=== PATIENT | female | born 1960 | race Caucasian/White ===

== ENCOUNTER → 2017-05-18 | Outpatient (CLI) | payer BC ==
[2017-05-18 13:25] LABS: Blood Urea Nitrogen 9 mg/dL (7-17); Non-African American GFR(MDRD) >60 (>60 ml/min/1.73 sqM)
--- NOTE | 2017-05-18 14:48 | CT ---
EXAMINATION TYPE: CT abdomen pelvis w con DATE OF EXAM: 05/18/2017 COMPARISON: NONE HISTORY: RLQ pain with nausea and diarrhea CT DLP: 1645 mGycm Automated exposure control for dose reduction was used. TECHNIQUE: Helical acquisition of images from the lung bases through the pelvis have been completed. CONTRAST: Performed with Oral Contrast and with IV Contrast, patient injected with 100 mL of Omnipaque 300. FINDINGS: LUNG BASES: No significant abnormality is appreciated. AORTA: No significant abnormality is appreciated. LIVER/GB: Liver shows low attenuation compatible with hepatic steatosis, the liver is enlarged and a gallbladder is absent PANCREAS: No significant abnormality is seen. SPLEEN: No significant abnormality is seen. ADRENALS: No significant abnormality is seen. KIDNEYS: No significant abnormality is seen. REPRODUCTIVE ORGANS: There is a large right cystic adnexal mass measuring approximately 7.4 cm in gre atest dimension. Uterus is not seen. Left ovary is normal. BOWEL: The appendix is normal. Thickening of the wall of the sigmoid colon may be due to muscular hy pertrophy or lack of distention, diverticular changes are scattered. No evident bowel obstruction. FREE AIR: No Free Air visible. ASCITES: None visible. PELVIC ADENOPATHY: None visualized. RETROPERITONEAL ADENOPATHY: No Retroperitoneal Adenopathy visible. URINARY BLADDER: No significant abnormality is seen. OSSEOUS STRUCTURES: No significant abnormality is seen. IMPRESSION: CYSTIC RIGHT ADNEXAL MASS, CONSIDER CYSTADENOMA, CYSTADENOCARCINOMA, MANAGER MANUFACTURING CONSULT. DIVERTICULOSIS. POS T OP CHANGES. HEPATIC STEATOSIS.
== END ==
LOC: RADCTMAIN 12:52
PROVIDERS: ATTEND Family Medicine
DX: K57.90 Diverticulosis of intestine, part unspecified, without perforation or abscess without bleeding (principal); K76.0 Fatty (change of) liver, not elsewhere classified; N85.8 Other specified noninflammatory disorders of uterus
CPT/HCPCS: 82565; 84520; 74177; 36415; Q9967

== ENCOUNTER → 2017-07-27 | Outpatient (CLI) | payer BC ==
--- NOTE | 2017-07-27 15:39 | US ---
EXAMINATION TYPE: US transvaginal DATE OF EXAM: 07/27/2017 COMPARISON: Correlation CT 05/18/2017 CLINICAL HISTORY: 56-year-old female N83.20 Previous right ovarian cysts. Follow-up right ovarian cys t seen on CT, Partial hysterectomy in 1982, right side discomfort TECHNIQUE: Transvaginal (TV) Date of LMP: Partial hysterectomy Findings: Uterus: Surgically absent Right Ovary: 7.9 x 5.5 x 5.7 cm, enlarged secondary to a simple cyst measuring 7.3 x 4.7 x 5.1 cm. Left ovary cannot be visualized. Suboptimal color and Doppler imaging of the right ovary due to large cystic lesion obscuring the norm al ovarian parenchyma. No evident adnexal abnormality or cul-de-sac free fluid. IMPRESSION: 1. Status post hysterectomy. The left ovary could not be visualized. 2. Large 7.3 x 5.1 x 4.7 cm simple cyst filling the right ovary. This measured up to 7.9 cm on the sa gittal images on CT from 05/18/2017. A 6 - 8 week follow-up ultrasound can be performed. If the findi ng continues to persist, a cystic epithelial ovarian neoplasm (likely benign) is not excluded and teri gical evaluation can be considered.
== END | disposition home or self-care (01) ==
LOC: RADUSWWP 14:19
PROVIDERS: ATTEND Obstetrics & Gynecology
DX: N83.201 Unspecified ovarian cyst, right side (principal); Z90.710 Acquired absence of both cervix and uterus
CPT/HCPCS: 76830

== ENCOUNTER → 2017-08-26 | Outpatient (CLI) | payer BC ==
[2017-08-26 12:20] LABS: Basophils # (A) 0.1 k/uL (0-0.2); Basophils % (A) 1 %; Eosinophils # (A) 0.2 k/uL (0-0.7); Eosinophils % (A) 2 %; HCT 43.5 % (34.0-46.0); HGB 13.4 gm/dL (11.4-16.0); Lymphocytes # (A) 2.6 k/uL (1.0-4.8); Lymphocytes % (A) 30 %; MCH 29.1 pg (25.0-35.0); MCHC 30.7 g/dL (31.0-37.0); MCV 94.9 fL (80.0-100.0); Mean Platelet Volume 8.9; Monocytes # (A) 0.4 k/uL (0-1.0); Monocytes % (A) 5 %; Neutrophils # (A) 5.3 k/uL (1.3-7.7); Neutrophils % (A) 61 %; Platelet Count 223 k/uL (150-450); RBC 4.59 m/uL (3.80-5.40); RDW 13.3 % (11.5-15.5); WBC 8.7 k/uL (3.8-10.6)
[2017-08-26 12:33] LABS: Anion Gap 14 mmol/L; Blood Urea Nitrogen 8 mg/dL (7-17); Calcium 9.3 mg/dL (8.4-10.2); Carbon Dioxide 25 mmol/L (22-30); Chloride 103 mmol/L (98-107); Glucose 284 mg/dL (74-99); Potassium 4.5 mmol/L (3.5-5.1); Sodium 142 mmol/L (137-145)
== END | disposition home or self-care (01) ==
LOC: LABPAT 11:47
PROVIDERS: ATTEND Obstetrics & Gynecology
DX: Z01.818 Encounter for other preprocedural examination (principal); Z01.812 Encounter for preprocedural laboratory examination
CPT/HCPCS: 36415; 80048; 85025; 93005

== ENCOUNTER 2017-09-01 06:04 | Inpatient (IN) | payer BC ==
[2017-08-24 10:03] VITALS: BMI 43.0
[~2017-09-01 06:04] MED LIST: DEXAMETHASONE SOD PHOSPHATE 10 MG/ML 1 ML VIAL IV ONE; HYDROmorphone 0.5 MG/0.5 ML SYRINGE IVP PRN; MIDAZOLAM 2 MG/2 ML VIAL IV PRN; ONDANSETRON 4 MG/2 ML VIAL IVP ONE; ceFAZolin IN SWFI 2 GM/20 ML SYRINGE IVP ONE
[2017-09-01] MEDS ORDERED: LIDOCAINE 1% 20 ML VIAL (10MG/ML) FOR IV START INTRADERMA ONE (07:00)
[2017-09-01] MEDS: LACTATED RINGERS 1,000 ML IV SCH (07:00)
[2017-09-01 07:13] LABS: Glucose,Whole Blood 268 mg/dL (75-99)
[2017-09-01] MEDS ORDERED: NALOXONE 0.4 MG/ML 1 ML VIAL IV PRN (07:22)
[2017-09-01] MEDS ORDERED: GLYCOPYRROLATE 0.2 MG/ML 2 ML VIAL ONE (07:39)
[2017-09-01] MEDS ORDERED: LIDOCAINE 1% INJ 10MG/ML (20 ML MDV) ONE (07:39)
[2017-09-01] MEDS ORDERED: ROCURONIUM BROMIDE 10 MG/ML 10 ML VIAL IV ONE (07:39)
[2017-09-01] MEDS ORDERED: NEOSTIGMINE 1 MG/ML 10 ML VIAL ONE (07:39)
[2017-09-01] MEDS ORDERED: PROPOFOL 10 MG/ML 20 ML VIAL IV ONE (07:39)
[2017-09-01] MEDS ORDERED: SUCCINYLCHOLINE CHLORIDE 100 MG/5 ML SYR IV ONE (07:39)
[2017-09-01] MEDS ORDERED: fentaNYL (PF) 50 MCG/ML 2 ML AMP ONE (07:39)
[2017-09-01] MEDS ORDERED: HEPARIN SODIUM,PORCINE 5,000 UNIT/ML 1 ML VIAL ONE (07:39)
--- NOTE | 2017-09-01 07:40 | P.HPOB ---
History of Present Illness H&P Date: 09/01/17 Chief Complaint: Right pelvic mass Li is a 56-year-old female with a 7 cm right ovarian mass. This mass is been present for a number of months and has begun to cause sharp stabbing pain. She has pain at least 2-3 days a week and there is some question as to early torsion of this mass. In discussing surgical options for her a exploratory laparotomy with RSO possible BSO was decided due to her history of a vertical skin incision in the past. She also does have family history of some female related cancers and as we're going to try and remove the left side as well as possible an open approach seems more conducive to this. Risks/benefits/ alternatives to this procedure were discussed with the patient in detail and all questions are answered her prior to proceeding to the operating room. On physical exam this is an overweight female whose HEENT is otherwise unremarkable. Her heart is regular, lungs are clear, extremities are without pain. Abdomen is soft with positive bowel sounds. Pelvic exams unfortunately other than maybe some very mild fullness in the right adnexa unremarkable. Assessment right pelvic mass. Plan exploratory laparotomy with RSO possible BSO Past Medical History Past Medical History: Diabetes Mellitus, Hyperlipidemia History of Any Multi-Drug Resistant Organisms: None Reported Past Surgical History: Hysterectomy, Tonsillectomy Additional Past Surgical History / Comment(s): RIGHT KNEE REPLACEMENT, Past Anesthesia/Blood Transfusion Reactions: No Reported Reaction Smoking Status: Former smoker - Past Family History Mother Family Medical History: No Reported History Medications and Allergies Home Medications Medication Instructions Recorded Confirmed Type ALPRAZolam [Xanax] 0.25 mg PO QID 05/31/16 08/24/17 History Simvastatin [Zocor] 10 mg PO HS 05/31/16 08/24/17 History diphenhydrAMINE [Benadryl] 50 mg PO QID PRN #20 capsule 05/31/16 09/01/17 Rx sitaGLIPtin PHOSPHATE [Januvia] 100 mg PO BID 05/31/16 08/24/17 History Meloxicam [Mobic] 7.5 mg PO DAILY 08/24/17 08/24/17 History Allergies Allergy/AdvReac Type Severity Reaction Status Date / Time acetaminophen [From [place]] Allergy Vomiting Verified 09/01/17 06:14 hydrocodone bitartrate Allergy Vomiting Verified 09/01/17 06:14 [From [place]] morphine Allergy Vomiting Verified 09/01/17 06:14 Exam Osteopathic Statement: *. No significant issues noted on an osteopathic structural exam other than those noted in the History and Physical/Consult. - Vital Signs Vital signs: Vital Signs Temp Pulse Resp BP Pulse Ox 09/01/17 07:20 73 16 97 09/01/17 07:00 97.6 F 79 16 125/79 96 Intake and Output 08/31/17 09/01/17 09/01/17 22:59 06:59 14:59 Intake Total 500 Balance 500 Intake: IV 500 Results Abnormal Lab Results - Last 24 Hours (Table) 09/01/17 Range/Units 06:52 POC Glucose (mg/dL) 268 H (75-99) mg/dL
[2017-09-01] MEDS ORDERED: SODIUM CHLORIDE 0.9% 1,000 ML IV ONE (08:06)
[2017-09-01] MEDS ORDERED: ACETAMINOPHEN IV (For NPO) 1,000 MG in EMPTY BAG 1 BAG IVPB ONE (09:07)
[2017-09-01] MEDS ORDERED: ONDANSETRON 4 MG/2 ML VIAL IVP PRN (09:07)
[2017-09-01] MEDS ORDERED: SIMETHICONE 80 MG CHEWABLE PO PRN (09:07)
[2017-09-01] MEDS: BUPIVACAINE (PF) 0.5% 37.5 ML, fentaNYL (PF) 1,250 MCG in SODIUM CHLORIDE 0.9% 188 ML EPIDURAL PRN ×2 (09:12→11:24)
--- NOTE | 2017-09-01 09:16 | P.OP ---
Date of Procedure: 09/01/17 Preoperative Diagnosis: Ovarian mass right side Postoperative Diagnosis: Same with adhesions Procedure(s) Performed: Exposure laparotomy with right oophorectomy and lysis of adhesions Anesthesia: RALPH Surgeon: William Goetz Lathe Machinist #1: Danii Lao Estimated Blood Loss (ml): 50 IV fluids (ml): 1,000 Urine output (ml): 85 Pathology: other (Right ovary) Condition: stable Disposition: floor Operative Findings: Significant adhesions of omentum to anterior abdominal wall as well significant adhesions of bowel and pericolic fat and tissues completely surrounding the right ovary Description of Procedure: The patient was taken to the operating suite where a general anesthetic was found be adequate. She was prepped and draped in the normal sterile fashion and placed in dorsal supine position. Initially a Pfannenstiel skin incision was made and this incision was then carried through to the underlying layer of the fascia with the second knife. Fascia was then nicked in the midline and this opening was extended laterally with Harper scissors. Superior and inferior aspect of this incision were then grasped tented up and bluntly and sharply dissected off the rectus muscles. Rectus muscles were then divided in the midline and blunt dissection through the peritoneum was made. This opening was then extended superiorly and inferiorly with good visualization of both bowel bladder using Metzenbaum scissors. There was some dissection of the omentum that had to be done to allow for extension of the incision due to significant adhesions of the omentum all along the anterior abdominal wall. Once this was accomplished patient was placed in Trendelenburg position and a self-retaining retractor was inserted with a bladder blade. Bowels packed out of the operative field as best as possible with some limitations due to how much adhesions were present. Initially the right ovary was not even visible. Once were able to identify approximate where the right ovary was we're able to bluntly and sharply dissect the initial layer scar tissue away to identify the superior pole of the ovary. Once this was accomplished using predominantly blunt dissection we were able to remove adhesions from around the ovary working our way inferiorly along the lateral borders the ovary. When needed some of the scar tissue was sharply dissected. However the preponderance of dissection was done with the pusher allowing as much blunt dissection and minimal blood loss as possible. Once the ovary was essentially cleared of the vast majority of the scar tissue the infundibular pelvic ligament was identified and crossclamped. With a [place]. Metzenbaum scissors were then used to excise the tissue and the ovary was sent to pathology. Suture was then used to tie off the infundibulopelvic ligament. Once this was accomplished pelvis was completely irrigated. No bleeding was noted. Once completed an attempt to identify the location left ovary was made however due to significant scarring and inability to palpate the ovary the decision to stop the procedure and get her to the recovery room was made due to her medical history and concern over length of time on the table. Therefore instruments were removed as was bowel packing. 0 Vicryl suture was then used to reapproximate the peritoneum and the fascia was closed with 0 Vicryl suture. One layer of 3-0 Vicryl was placed subcuticularly to reapproximate skin and close the space. Skin was then closed with 3-0 Vicryl in a subcuticular fashion. Sponge, lap, needle counts were all correct 2. Patient was then taken to the recovery room in stable and satisfactory condition.
[2017-09-01 09:25] LABS: Glucose,Whole Blood 274 mg/dL (75-99)
[2017-09-01] MEDS ORDERED: INSULIN ASPART 100 UNIT/ML 1 ML 10 ML VIAL SQ ONE (10:42)
[2017-09-01] MEDS: diphenhydrAMINE 50 MG/ML 1 ML VIAL IVP ONE ×2 (11:15→11:50)
[2017-09-01] MEDS: ALPRAZolam 0.25 MG TAB PO SCH ×3 (13:49→22:32)
[2017-09-01] MEDS: diphenhydrAMINE 50 MG/ML 1 ML VIAL IVP PRN ×2 (15:27→22:32)
[2017-09-01] MEDS: KETOROLAC 30 MG/ML 1 ML VIAL IVP PRN ×2 (15:32→22:43)
[2017-09-01] MEDS: HEPARIN SODIUM,PORCINE 5,000 UNIT/ML 1 ML VIAL SQ SCH (17:03)
[2017-09-01 17:39] LABS: Glucose,Whole Blood 310 mg/dL (75-99)
[2017-09-01] MEDS: INSULIN ASPART 100 UNIT/ML 1 ML 10 ML VIAL SQ SCH (19:28)
[2017-09-01] MEDS: SENNOSIDES-DOCUSATE SODIUM 1 EACH TAB PO SCH (19:28)
[2017-09-01 21:16] LABS: Glucose,Whole Blood 258 mg/dL (75-99)
[2017-09-01] MEDS: ATORVASTATIN 10 MG TAB PO SCH (22:32)
[2017-09-02] MEDS: HEPARIN SODIUM,PORCINE 5,000 UNIT/ML 1 ML VIAL SQ SCH ×4 (00:10→23:54)
[2017-09-02] MEDS: BUPIVACAINE (PF) 0.5% 37.5 ML, fentaNYL (PF) 1,250 MCG in SODIUM CHLORIDE 0.9% 188 ML EPIDURAL PRN (02:50)
[2017-09-02] MEDS: diphenhydrAMINE 50 MG/ML 1 ML VIAL IVP PRN (03:44)
[2017-09-02] MEDS: LACTATED RINGERS 1,000 ML IV SCH (05:32)
[2017-09-02 07:04] LABS: Glucose,Whole Blood 268 mg/dL (75-99)
[2017-09-02] MEDS ORDERED: NALBUPHINE 10 MG/ML AMPUL IV PRN (07:09)
--- NOTE | 2017-09-02 07:17 | P.PN ---
Progress Note - Text Progress Note Date: 09/02/17 Post operative day 1, status post exp laparotomy, right oophorectomy, the epidural catheter placed for postoperative analgesia, patient currently on continuous infusion of bupivacaine/fentanyl at 12 mL per hour, pain well controlled she had no motor deficit, she is complaining of severe itching that is not controlled with Benadryl, epidural site okay, vital signs stable Assessment and plan= good pain control patient having side effects from opioid, I will decrease the epidural infusion to 10 ML per hour, and patient will get Nubain IV 2.5 mg every 6 hours when necessary
[2017-09-02] MEDS: SODIUM CHLORIDE 0.9% 1,000 ML IV SCH ×2 (07:44→18:03)
[2017-09-02] MEDS: ALPRAZolam 0.25 MG TAB PO SCH ×4 (07:48→22:18)
[2017-09-02] MEDS: INSULIN ASPART 100 UNIT/ML 1 ML 10 ML VIAL SQ SCH ×4 (07:48→22:13)
[2017-09-02] MEDS: LINAGLIPTIN 5 MG TABLET PO SCH (07:49)
[2017-09-02] MEDS: SENNOSIDES-DOCUSATE SODIUM 1 EACH TAB PO SCH ×2 (07:49→22:12)
[2017-09-02 08:12] LABS: Basophils % (A) 0 %; Eosinophils # (A) 0.1 k/uL (0-0.7); Eosinophils % (A) 0 %; HCT 38.3 % (34.0-46.0); HGB 12.3 gm/dL (11.4-16.0); Lymphocytes # (A) 3.5 k/uL (1.0-4.8); Lymphocytes % (A) 26 %; MCH 29.8 pg (25.0-35.0); MCHC 32.2 g/dL (31.0-37.0); MCV 92.7 fL (80.0-100.0); Mean Platelet Volume 8.7; Monocytes % (A) 7 %; Neutrophils # (A) 8.6 k/uL (1.3-7.7); Neutrophils % (A) 65 %; Platelet Count 246 k/uL (150-450); RBC 4.13 m/uL (3.80-5.40); RDW 13.3 % (11.5-15.5); WBC 13.4 k/uL (3.8-10.6)
[2017-09-02 08:24] LABS: ALT 51 U/L (9-52); AST 37 U/L (14-36); Albumin 3.9 g/dL (3.5-5.0); Alkaline Phosphatase 61 U/L (38-126); Anion Gap 13 mmol/L; Blood Urea Nitrogen 24 mg/dL (7-17); Calcium 9.4 mg/dL (8.4-10.2); Carbon Dioxide 24 mmol/L (22-30); Chloride 100 mmol/L (98-107); Glucose 239 mg/dL (74-99); Potassium 4.8 mmol/L (3.5-5.1); Sodium 137 mmol/L (137-145); Total Protein 6.8 g/dL (6.3-8.2)
--- NOTE | 2017-09-02 08:25 | P.PN ---
Progress Note - Text Progress Note Date: 09/02/17December seen and evaluated postop day 1. Overall she looks good. She is ambulating, voiding and she is currently tolerating her diet. At this time she voices no complaints. Her vital signs are stable and afebrile. Hemoglobin stable. Abdomen is soft bowel sounds are noted. Assessment postop day 1. Plan continue current care.
[2017-09-02 11:43] LABS: Glucose,Whole Blood 248 mg/dL (75-99)
[2017-09-02] MEDS ORDERED: Acetaminophen-Codeine 300-30mg TAB PO PRN (16:40)
[2017-09-02] MEDS: Acetaminophen-Codeine 300-30mg TAB PO PRN (17:17)
[2017-09-02 17:24] LABS: Glucose,Whole Blood 265 mg/dL (75-99)
[2017-09-02 19:05] LABS: Hemoglobin A1C 9.9 % (4.0-6.0)
[2017-09-02] MEDS ORDERED: HYDROmorphone 0.5 MG/0.5 ML SYRINGE IVP PRN (20:12)
[2017-09-02 20:50] LABS: Glucose,Whole Blood 220 mg/dL (75-99)
[2017-09-02] MEDS: ATORVASTATIN 10 MG TAB PO SCH (22:18)
[2017-09-02] MEDS: KETOROLAC 30 MG/ML 1 ML VIAL IVP PRN (23:41)
[2017-09-03] MEDS: SODIUM CHLORIDE 0.9% 1,000 ML IV SCH ×2 (00:26→07:26)
--- NOTE | 2017-09-03 00:37 | PN ---
PROGRESS NOTE DATE OF SERVICE: 09/02/2017 SUBJECTIVE: This 56-year-old white female who is status post ovarian cyst removal with no chest pain, no shortness of breath, no lightheadedness or syncope. She had some poor urinary output for which increase IV fluid was necessary. CARDIOVASCULAR: S1, S2. LUNGS: Clear. GI: Soft. HEMATOLOGY: Negative Ronn's. PSYCH: Fair mood and affect. ASSESSMENT: 1. Urinary retention, poor urine output, dehydration, status post ovarian cyst removal. 2. Dyslipidemia. 3. Diabetes mellitus. Continue current treatments. Possible discharge in the next 24 to 48 hours as urine output is improved today on 09/02/2017. MMODL / IJN: [id number] /
--- NOTE | 2017-09-03 04:31 | CONS ---
CONSULTATION DATE OF SERVICE: 09/01/2017 CHIEF COMPLAINT: 56-year-old white female status post right 7 cm right ovarian mass removal. She has been in severe amount of pain. She had open approach to surgery. She is breathing good postop. She has a lot of pain 8 to 10/10. PAST MEDICAL HISTORY: Diabetes mellitus, dyslipidemia. SURGICAL HISTORY: Hysterectomy, tonsillectomy, right knee replacement. SOCIAL HISTORY: Former smoker. HOME MEDICATIONS: Include Xanax 0.25 q.i.d., Zocor 10 q.h.s., Benadryl 50 q.i.d., Januvia 100 b.i.d., Mobic 7.5 daily. ALLERGIES: NORCO, MORPHINE. PHYSICAL EXAMINATION: Vital signs: Temp 97.6, pulse 70s, respiratory 16 to 18, blood pressure 125/79. CARDIOVASCULAR: S1, S2. LUNGS: Transmitted upper airway sounds. Hematology: Negative Homans. Psych: Fair mood and affect. Ophthalmologic: Pupils equal, round, reactive to light and accommodation. Neurologic: Alert orient x3. ASSESSMENT: 1. Tenderness, status post ovarian cyst removal. 2. Diabetes mellitus. 3. Obesity. 4. Hypertension. Continue current home medicines. Accu-Chek protocol. MMODL / IJN: [id number] /
[2017-09-03] MEDS: Acetaminophen-Codeine 300-30mg TAB PO PRN ×4 (06:35→20:37)
--- NOTE | 2017-09-03 06:41 | P.PN ---
Progress Note - Text Progress Note Date: 09/03/17 This is a 56-year-old female postoperative day #4 status post expolatory laparotomy. The patient's epidural was ruled out by mistake yesterday however by that time it was POD#3 and usually we pulled the epidural out at 72 hours after procedure. The patient is doing well ambulating with no paresthesia or weakness in the lower extremities. Her pain is managed by IV and oral medication at this point. We will sign off. Thank you for the consultation.
[2017-09-03 07:13] LABS: Glucose,Whole Blood 297 mg/dL (75-99)
[2017-09-03] MEDS: LACTATED RINGERS 1,000 ML IV SCH (07:25)
[2017-09-03] MEDS: SENNOSIDES-DOCUSATE SODIUM 1 EACH TAB PO SCH ×2 (08:32→20:36)
[2017-09-03] MEDS: INSULIN ASPART 100 UNIT/ML 1 ML 10 ML VIAL SQ SCH ×4 (08:32→22:00)
[2017-09-03] MEDS: HEPARIN SODIUM,PORCINE 5,000 UNIT/ML 1 ML VIAL SQ SCH ×2 (08:32→17:06)
[2017-09-03] MEDS: LINAGLIPTIN 5 MG TABLET PO SCH (08:33)
[2017-09-03] MEDS: ALPRAZolam 0.25 MG TAB PO SCH ×4 (08:33→22:50)
--- NOTE | 2017-09-03 10:34 | P.PN ---
Progress Note - Text Progress Note Date: 09/03/17 Postop day 2. Li is seen and evaluated. She is ambulating some and she is tolerating a diet. She still has incisional pain and is sore generalized due to surgery. However in reviewing her labs with her it is noted that she had a hemoglobin A1c of 9.9 and her Accu-Cheks have been all well above 200 including 294 this morning. Due to this finding I'm requesting a diabetic education consultation as well as we're going to need to work with her primary care provider to try and get more aggressive management of the sugars so that we don' t have any infections or for healing of the wound that I would be concerned of with sugars that remained that high. She voices no other significant complaints and is overall stable from a surgical standpoint we're waiting pathology from her ovary but I suspect that a benign etiology will be found. Assessment postop day 2. With poorly controlled diabetes and obesity plan as above.
[2017-09-03 11:45] LABS: Glucose,Whole Blood 260 mg/dL (75-99)
[2017-09-03 16:45] LABS: Glucose,Whole Blood 267 mg/dL (75-99)
[2017-09-03] MEDS: metFORMIN 500 MG TAB PO SCH (17:31)
[2017-09-03] MEDS: ATORVASTATIN 10 MG TAB PO SCH (20:37)
--- NOTE | 2017-09-03 21:08 | PN ---
PROGRESS NOTE SUBJECTIVE: This is a white female with ovarian mass, having severe amount of pain. She had poor urine output, which is improved with IV fluids. Diabetes under better control. Hypertension under better control. She has poor pain control at this time. Awaiting pathology. Cardiovascular S1-S2. Lungs are clear. GI is soft. Hematology negative Homans. ASSESSMENT: 1. Ovarian mass status post removal. 2. Dehydration. 3. Urinary retention. 4. Hypertension. 5. Diabetes mellitus. Continue pain control. Diabetes Accu-Chek protocol. We will add metformin to her sugar control, 1 g b.i.d. of metformin. Possible discharge next 24 hours if the pain is under better control. MMODL / IJN: [id number] /
[2017-09-03 21:32] LABS: Glucose,Whole Blood 285 mg/dL (75-99)
[2017-09-03] MEDS: HYDROmorphone 2 MG TAB PO PRN (21:59)
[2017-09-04] MEDS: SODIUM CHLORIDE 0.9% 1,000 ML IV SCH ×3 (01:51→09:11)
[2017-09-04] MEDS: Acetaminophen-Codeine 300-30mg TAB PO PRN (03:07)
[2017-09-04] MEDS: HEPARIN SODIUM,PORCINE 5,000 UNIT/ML 1 ML VIAL SQ SCH ×2 (03:08→10:49)
[2017-09-04] MEDS: HYDROmorphone 2 MG TAB PO PRN ×3 (04:40→15:06)
[2017-09-04 07:32] LABS: Glucose,Whole Blood 247 mg/dL (75-99)
[2017-09-04] MEDS: INSULIN ASPART 100 UNIT/ML 1 ML 10 ML VIAL SQ SCH ×2 (07:49→12:33)
[2017-09-04] MEDS ORDERED: INSULIN DETEMIR 100 UNIT/ML 10 ML VIAL SQ SCH (09:00)
[2017-09-04] MEDS: LACTATED RINGERS 1,000 ML IV SCH (09:11)
--- NOTE | 2017-09-04 09:13 | P.DS ---
Providers Date of admission: 09/01/17 06:04 Expected date of discharge: 09/04/17 Attending physician: William Goetz Consults: 09/01/17 09:09 Consult Physician Urgent Consulting Provider: Dank Perry Reason/Comments: medical management Do you want consulting provider notified?: Yes [facility] Course: Li seen and evaluated postop day 3. She is involuting, voiding, and she is tolerating her diet. Her blood sugars have remained elevated but stable, PCP is making adjustments to her medication to try and get this better control. We' ll have her see him the next few days as well to verify in creased control. In speaking with her today she is requesting to be discharged home she feels better and her pain is much better controlled with the Dilaudid. We'll plan to send her home on 1 mg of Dilaudid every 4 hours she can take 1 or 2 tablets every 4 hours as needed and I will see her in a week to reassess her pain and her incision. At this time her vital signs are stable and afebrile. Heart regular, lungs clear, extremities are without pain. Osteopathic exam is otherwise unremarkable. Abdomen soft positive bowel sounds are noted in her incision is otherwise clean dry and intact. Assessment postop day 3. Plan discharged home follow up with me in 1 week. Other discharge instructions been thoroughly reviewed and all questions are answered for her at this time. We'll also obtain the glucometer as she reports that the blood sugar she gets at home or not as high as once that we have been getting in the hospital and don't correlate with her hematoma A1c of 9.9. Hopefully this bleeding issue that her glucometer is been giving poor readings and we just need to get a new one calibrated correctly. Patient Condition at Discharge: Good Plan - Discharge Summary Discharge Rx Participant: Yes New Discharge Prescriptions: New Ibuprofen [Motrin] 600 mg PO Q6HR PRN #30 tab PRN Reason: Pain HYDROmorphone [Dilaudid] 1 mg PO Q4HR PRN #30 tab PRN Reason: Pain No Action sitaGLIPtin PHOSPHATE [Januvia] 100 mg PO BID Simvastatin [Zocor] 10 mg PO HS ALPRAZolam [Xanax] 0.25 mg PO QID diphenhydrAMINE [Benadryl] 50 mg PO QID PRN #20 capsule PRN Reason: ALLERGIC symptoms Meloxicam [Mobic] 7.5 mg PO DAILY Discharge Medication List ALPRAZolam [Xanax] 0.25 mg PO QID 05/31/16 [History] Simvastatin [Zocor] 10 mg PO HS 05/31/16 [History] diphenhydrAMINE [Benadryl] 50 mg PO QID PRN #20 capsule 05/31/16 [Rx] sitaGLIPtin PHOSPHATE [Januvia] 100 mg PO BID 05/31/16 [History] Meloxicam [Mobic] 7.5 mg PO DAILY 08/24/17 [History] HYDROmorphone [Dilaudid] 1 mg PO Q4HR PRN #30 tab 09/04/17 [Rx] Ibuprofen [Motrin] 600 mg PO Q6HR PRN #30 tab 09/04/17 [Rx] Follow up Appointment(s)/Referral(s): William Goetz DO [Doctor of Osteopathic Medicine] - 1 Week Dank Perry MD [Primary Care Provider] - 3 Days Activity/Diet/Wound Care/Special Instructions: No heavy lifting, limit stairs and driving, and pelvic rest. If any high temperatures, heavy bleeding, or severe pain she needs to call our office or report to the emergency room. She will follow up with Dr. Perry in 3 days to reassess her blood sugars and blood pressures. Discharge Disposition: HOME SELF-CARE
[2017-09-04] MEDS: SENNOSIDES-DOCUSATE SODIUM 1 EACH TAB PO SCH (09:16)
[2017-09-04] MEDS: LINAGLIPTIN 5 MG TABLET PO SCH (09:16)
[2017-09-04] MEDS: ALPRAZolam 0.25 MG TAB PO SCH ×2 (09:18→14:16)
[2017-09-04] MEDS: metFORMIN 500 MG TAB PO SCH (09:24)
[2017-09-04 11:59] LABS: Glucose,Whole Blood 265 mg/dL (75-99)
[2017-09-04 14:29] VITALS: BP 154/72; PULSE 92; RESP 18; TEMP 97.9
--- NOTE | 2017-09-04 16:00 | PN ---
PROGRESS NOTE SUBJECTIVE: This is a white female, status post ovarian mass removal, insulin-dependent diabetes mellitus. Levemir will be started 10 units twice a day due to elevated blood sugars. Hypertension, dehydration, urinary tract infection improving. CARDIOVASCULAR: S1, S2 LUNGS: Clear GI: Soft HEMATOLOGY: Negative Homans. PSYCH: Fair mood and affect. PLAN: Continue with current treatment. Possible discharge home next 24-48 hours. MMODL / IJN: [id number] /
== END 2017-09-04 15:42 | disposition home or self-care (01) | DRG 743 ==
LOC: 2ORMAIN 06:04 → 6PED 09:58 → 2ORMAIN 10:14 → 3SUR 12:01
PROVIDERS: ADMIT Obstetrics & Gynecology; ATTEND Obstetrics & Gynecology
PROC: 0DNU0ZZ Release Omentum, Open Approach (ICD-10-PCS; principal; 2017-09-01 07:45)
PROC: 0DNE0ZZ Release Large Intestine, Open Approach (ICD-10-PCS; principal; 2017-09-01 07:45)
PROC: 0UT00ZZ Resection of Right Ovary, Open Approach (ICD-10-PCS; principal; 2017-09-01 07:45)
DX: N83.9 Noninflammatory disorder of ovary, fallopian tube and broad ligament, unspecified (principal); E11.65 Type 2 diabetes mellitus with hyperglycemia; E66.9 Obesity, unspecified; E78.5 Hyperlipidemia, unspecified; E86.0 Dehydration; I10 Essential (primary) hypertension; K66.0 Peritoneal adhesions (postprocedural) (postinfection); Z79.4 Long term (current) use of insulin; Z87.891 Personal history of nicotine dependence; Z90.710 Acquired absence of both cervix and uterus; Z96.651 Presence of right artificial knee joint; Z79.899 Other long term (current) drug therapy; Z88.5 Allergy status to narcotic agent
CPT/HCPCS: 80053; 83036; 85025; 86850; 86900; 86901; 88305; 88307

== ENCOUNTER → 2017-12-08 | Outpatient (CLI) | payer BC ==
--- NOTE | 2017-12-09 08:01 | MM ---
Reason for exam: screening (asymptomatic). Last mammogram was performed 1 year and 5 months ago. History: Family history of breast cancer in mother at age 50. Physical Findings: A clinical breast exam by your physician is recommended on an annual basis and results should be correlated with mammographic findings. MG 3D Screening Mammo W/Cad Bilateral CC and MLO view(s) were taken. Prior study comparison: July 08, 2016, bilateral MG 3d screening mammo w/cad. February 05, 2015, bilateral MG screening mammo w CAD. The breast tissue is heterogeneously dense. This may lower the sensitivity of mammography. There is no discrete abnormality. No significant changes when compared with prior studies. ASSESSMENT: Negative, BI-RAD 1 RECOMMENDATION: Routine screening mammogram of both breasts in 1 year.
== END | disposition home or self-care (01) ==
LOC: RADMAMWWP 07:31
PROVIDERS: ATTEND Family Medicine
DX: Z12.31 Encounter for screening mammogram for malignant neoplasm of breast (principal); Z80.3 Family history of malignant neoplasm of breast
CPT/HCPCS: 77063; 77067

== ENCOUNTER → 2018-03-04 | Outpatient (CLI) | payer BC ==
--- NOTE | 2018-03-05 08:41 | XR ---
EXAMINATION TYPE: XR knee complete RT DATE OF EXAM: 03/04/2018 CLINICAL HISTORY: Worsening right knee pain. History of knee replacement 10-15 years ago. TECHNIQUE: Three views of the right knee are obtained. COMPARISON: None. FINDINGS: There is no acute fracture/dislocation evident in right knee. [place] osseous structures a re somewhat demineralized. Metallic hardware from right hip arthroplasty is present. No suspicious ro unded lucency is seen is identified to suggest infection or loosening. The overlying soft tissue appe ars unremarkable. IMPRESSION: As above.
== END | disposition home or self-care (01) ==
LOC: RADXRYALE 12:00
PROVIDERS: ATTEND Family Medicine
DX: M25.561 Pain in right knee (principal)

== ENCOUNTER → 2019-01-18 | Outpatient (CLI) | payer BC | END | disposition home or self-care (01) | LOC: LABWHC1 14:17 | PROVIDERS: ATTEND Family Medicine | DX: I10 Essential (primary) hypertension (principal); E11.9 Type 2 diabetes mellitus without complications; Z79.899 Other long term (current) drug therapy | CPT/HCPCS: 36415; 85652; 86431 ==

== ENCOUNTER → 2019-04-29 | Outpatient (CLI) | payer OTHER ==
--- NOTE | 2019-05-02 13:42 | MM ---
Reason for exam: screening (asymptomatic). Last mammogram was performed 1 year and 5 months ago. History: Patient is postmenopausal. Family history of breast cancer in mother at age 50. Physical Findings: A clinical breast exam by your physician is recommended on an annual basis and results should be correlated with mammographic findings. MG 3D Screening Mammo W/Cad Bilateral CC and MLO view(s) were taken. Prior study comparison: December 08, 2017, bilateral MG 3d screening mammo w/cad. July 08, 2016, bilateral MG 3d screening mammo w/cad. The breast tissue is heterogeneously dense. This may lower the sensitivity of mammography. No significant changes when compared with prior studies. ASSESSMENT: Benign, BI-RAD 2 RECOMMENDATION: Routine screening mammogram of both breasts in 1 year.
== END | disposition home or self-care (01) ==
LOC: RADMAMWWP 15:16
PROVIDERS: ATTEND Family Medicine
DX: Z12.31 Encounter for screening mammogram for malignant neoplasm of breast (principal); Z80.3 Family history of malignant neoplasm of breast
CPT/HCPCS: 77063; 77067

== ENCOUNTER 2020-02-09 07:30 | Day surgery (SDC) | payer OTHER ==
[2020-02-07 10:23] VITALS: BMI 44.9
[~2020-02-09 07:30] MED LIST changes: -DEXAMETHASONE SOD PHOSPHATE 10 MG/ML 1 ML VIAL IV ONE; -HYDROmorphone 0.5 MG/0.5 ML SYRINGE IVP PRN; +LACTATED RINGERS 1,000 ML IV SCH; +LIDOCAINE 1% (10MG/ML) FOR IV START INTRADERMA PRN; -MIDAZOLAM 2 MG/2 ML VIAL IV PRN; -ONDANSETRON 4 MG/2 ML VIAL IVP ONE; -ceFAZolin IN SWFI 2 GM/20 ML SYRINGE IVP ONE
[2020-02-09 07:59] VITALS: TEMP 97.8
[2020-02-09 08:14] LABS: Glucose,Whole Blood 196 mg/dL (75-99)
[2020-02-09] MEDS ORDERED: LIDOCAINE 1% INJ 10MG/ML (20 ML MDV) ONE (08:54)
[2020-02-09] MEDS ORDERED: PROPOFOL 10 MG/ML 20 ML VIAL IV ONE (08:54)
--- NOTE | 2020-02-09 08:57 | P.GSHP ---
History of Present Illness H&P Date: 02/09/20 Chief Complaint: Screening colonoscopy 59-year-old female presents today for screening colonoscopy. Patient has history of internal hemorrhoids Past Medical History Past Medical History: Asthma, Diabetes Mellitus, Hyperlipidemia, Hypertension History of Any Multi-Drug Resistant Organisms: None Reported Past Surgical History: Hysterectomy, Joint Replacement, Tonsillectomy Additional Past Surgical History / Comment(s): RIGHT KNEE REPLACEMENT, exploratory lap, lysis of adhesion and right salpingo oophorectomy, colonoscopy Past Anesthesia/Blood Transfusion Reactions: No Reported Reaction Past Psychological History: Anxiety, Depression Smoking Status: Former smoker Past Alcohol Use History: None Reported Additional Past Alcohol Use History / Comment(s): quit smoking 01/07/17; smoked for 30 years previoulsy 1ppd Past Drug Use History: None Reported - Past Family History Mother Family Medical History: No Reported History Medications and Allergies Home Medications Medication Instructions Recorded Confirmed Type ALPRAZolam [Xanax] 0.25 mg PO BID 05/31/16 02/09/20 History Albuterol Sulfate [Proair Hfa] 1 - 2 puff INHALATION Q6HR PRN 01/25/20 02/07/20 History Benazepril HCl 20 mg PO DAILY 01/25/20 02/09/20 History Dapagliflozin Propanediol [Farxiga] 5 mg PO DAILY 01/25/20 02/07/20 History Meloxicam 15 mg PO DAILY 01/25/20 02/07/20 History Oxybutynin Chloride [Ditropan XL] 5 mg PO DAILY 01/25/20 02/07/20 History Rosuvastatin Calcium [Crestor] 10 mg PO HS 01/25/20 02/07/20 History sitaGLIPtin PHOS/metFORMIN HCL 1 each PO BID 01/25/20 02/07/20 History [Janumet 50-1,000 mg Tablet] Allergies Allergy/AdvReac Type Severity Reaction Status Date / Time acetaminophen [From [place]] Allergy Vomiting Verified 02/09/20 07:52 hydrocodone bitartrate Allergy Vomiting Verified 02/09/20 07:52 [From [place]] morphine Allergy Vomiting Verified 02/09/20 07:52 Surgical - Exam Vital Signs Temp Pulse Resp BP Pulse Ox 97.8 F 77 17 133/68 94 L 02/09/20 07:58 02/09/20 07:58 02/09/20 07:58 02/09/20 07:58 02/09/20 07:58 - General well developed, well nourished, no distress - Eyes PERRL - ENT normal pinna - Neck no masses - Respiratory normal expansion - Cardiovascular Rhythm: regular - Abdomen Abdomen: soft, non tender Results - Labs Abnormal Lab Results - Last 24 Hours (Table) 02/09/20 Range/Units 08:06 POC Glucose (mg/dL) 196 H (75-99) mg/dL Assessment and Plan Assessment: We'll perform screening colonoscopy.
--- NOTE | 2020-02-09 09:05 | P.OP ---
Date of Procedure: 02/09/20 Preoperative Diagnosis: Screening colonoscopy Postoperative Diagnosis: External hemorrhoids Procedure(s) Performed: Colonoscopy Anesthesia: MAC Surgeon: Reji Heller Pathology: none sent Condition: stable Disposition: PACU Description of Procedure: The patient's placed on the endoscopy table in the lateral position. She received IV sedation. Digital rectal exam was performed which revealed external and internal hemorrhoids. The flexible colonoscope was then placed patient anus passed throughout the entire colon. The ileocecal valve was visualized. The cecum, ascending and transverse colon appeared normal. The descending and sigmoid colon appeared normal. Scope was brought back the rectum and this was normal. Scope was withdrawn through the anus and internal extremity was seen. Scope was withdrawn for patient.
[2020-02-09 09:09] VITALS: RESP 16
[2020-02-09 09:19] VITALS: BP 125/79; PULSE 60
== END 2020-02-09 09:36 | disposition home or self-care (01) ==
LOC: ORWHC2ENDO 07:30
PROVIDERS: ATTEND Surgery
DX: Z12.11 Encounter for screening for malignant neoplasm of colon (principal); K64.8 Other hemorrhoids; K64.4 Residual hemorrhoidal skin tags; J45.909 Unspecified asthma, uncomplicated; I10 Essential (primary) hypertension; E66.01 Morbid (severe) obesity due to excess calories; F41.9 Anxiety disorder, unspecified; F32.9 Major depressive disorder, single episode, unspecified; E11.9 Type 2 diabetes mellitus without complications; E78.5 Hyperlipidemia, unspecified; Z68.41 Body mass index [BMI] 40.0-44.9, adult; Z90.710 Acquired absence of both cervix and uterus; Z87.19 Personal history of other diseases of the digestive system; Z90.89 Acquired absence of other organs; Z96.651 Presence of right artificial knee joint; Z87.891 Personal history of nicotine dependence; Z88.5 Allergy status to narcotic agent; Z79.84 Long term (current) use of oral hypoglycemic drugs; Z79.1 Long term (current) use of non-steroidal anti-inflammatories (NSAID); Z79.899 Other long term (current) drug therapy; Z90.711 Acquired absence of uterus with remaining cervical stump
CPT/HCPCS: 45378; J2001; J2704

== ENCOUNTER → 2020-06-26 | Outpatient (CLI) | payer OTHER ==
--- NOTE | 2020-06-26 13:32 | MM ---
Reason for exam: screening (asymptomatic). Last mammogram was performed 1 year and 2 months ago. History: Patient is postmenopausal. Family history of breast cancer in mother at age 50. Physical Findings: A clinical breast exam by your physician is recommended on an annual basis and results should be correlated with mammographic findings. MG 3D Screening Mammo W/Cad Bilateral CC and MLO view(s) were taken. Prior study comparison: April 29, 2019, bilateral MG 3d screening mammo w/cad. December 08, 2017, bilateral MG 3d screening mammo w/cad. There are scattered fibroglandular densities. There are benign appearing round calcifications bilaterally. Asymmetric breast tissue left outer quadrant, stable. There is no discrete abnormality. ASSESSMENT: Benign, BI-RAD 2 RECOMMENDATION: Routine screening mammogram of both breasts in 1 year.
== END | disposition home or self-care (01) ==
LOC: RADMAMWWP 07:18
PROVIDERS: ATTEND Family Medicine
DX: Z12.31 Encounter for screening mammogram for malignant neoplasm of breast (principal); Z80.3 Family history of malignant neoplasm of breast
CPT/HCPCS: 77063; 77067

== ENCOUNTER → 2020-10-03 | Outpatient (CLI) | payer OTHER ==
--- NOTE | 2020-10-03 08:47 | CTL ---
EXAMINATION TYPE: CT Low Dose Lung DATE OF EXAM ORDERED: 10/03/2020 COMPARISON: HISTORY: . Low Dose CT Lung Screening CT DLP: [address] CTDI: 2.79 mGy IV CONTRAST USED: None. SCREENING VISIT: First visit COMPARISON: None. TECHNIQUE: Low dose computed tomography scan was performed through the chest at 1 millimeter thick se ctions and reconstructed images in the coronal plane at [address] DIAGNOSTIC QUALITY: Satisfactory FINDINGS: LUNG NODULES: Not presentLeft lung: no nodules identified.Right lung: no nodules identified. LUNGS: COPD: Severity: None Fibrosis: Severity:None Lymph nodes: None Other findings: None RIGHT PLEURAL SPACE: Effusion: None Calcification: None Thickening: None Pneumothorax: None LEFT PLEURAL SPACE: Effusion: None Calcification: None Thickening: None Pneumothorax: None HEART: Heart Size: Mildly enlarged Coronary calcification: Mild Pericardial effusion: None OTHER FINDINGS: Upper abdomen: No significant abnormality Bony thorax: Degenerative changes Supraclavicular region: No significant abnormalityOther: No significant abnormalityI IMPRESSION: No distinct pulmonary nodules identified. FOLLOW UP CT CHEST RECOMMENDATION: Follow-up screening in one year CT LUNG RAD: LUNG RAD CATEGORY category 1 negative
== END ==
LOC: RADCTMAIN 08:02
PROVIDERS: ATTEND Family Medicine
DX: Z12.2 Encounter for screening for malignant neoplasm of respiratory organs (principal); Z87.891 Personal history of nicotine dependence
CPT/HCPCS: 71271

== ENCOUNTER → 2021-08-29 | Outpatient (CLI) | payer OTHER ==
--- NOTE | 2021-08-29 15:33 | XR ---
EXAMINATION TYPE: XR chest 2V DATE OF EXAM: 08/29/2021 COMPARISON: X-ray dated 10/07/2010 HISTORY: Cough, chest pain and asthma TECHNIQUE: Frontal and lateral views of the chest are obtained. FINDINGS: Unremarkable lungs. No pleural effusion or pneumothorax. No cardiomegaly. Aortic atherosclerotic calc ification. Degenerative changes of the lower thoracic spine. IMPRESSION: No significant pulmonary abnormality.
== END | disposition home or self-care (01) ==
LOC: RADXRMAIN 10:10
PROVIDERS: ATTEND Family Medicine
DX: J45.909 Unspecified asthma, uncomplicated (principal)
CPT/HCPCS: 71046

== ENCOUNTER → 2022-01-27 | Outpatient (CLI) | payer OTHER ==
--- NOTE | 2022-01-27 10:08 | CTL ---
EXAMINATION TYPE: CT Low Dose Lung DATE OF EXAM ORDERED: 01/27/2022 HISTORY: Lung cancer screening CT DLP: [address] CTDI: 2.4 mGy Automated exposure control for dose reduction was used. SCREENING VISIT: Yes COMPARISON: CT low dose 10/03/2020 TECHNIQUE: Low dose computed tomography scan was performed through the chest at 1 mm thick sections a nd reconstructed images in multiple planes at 1 mm and [address] DIAGNOSTIC QUALITY: Satisfactory FINDINGS: LUNG NODULES: Present, detailed below: Right lower lobe groundglass pulmonary nodule measuring 9 mm m ore conspicuous on today's exam series 4 image 141. LUNGS: COPD: Severity: None Fibrosis: Severity: None Lymph nodes: None Other findings: None RIGHT PLEURAL SPACE: Effusion: None Calcification: None Thickening: None Pneumothorax: None LEFT PLEURAL SPACE: Effusion: None Calcification: None Thickening: None Pneumothorax: None HEART: Heart Size: Normal for size. Coronary Calcification: Mild Pericardial Effusion: None Lipomatous hypertrophy changes of the interatrial septum. OTHER FINDINGS: Upper abdomen: Cholecystectomy clips are present. Bony thorax: Mild multilevel disc degeneration changes throughout the spine. Supraclavicular region: None Other: None IMPRESSION: 1. 9 mm right lower lobe groundglass pulmonary nodule which is more conspicuous on today's exam. 2. Mild coronary artery atherosclerosis. CT LUNG RAD AND CT CHEST RECOMMENDATION: Lung-Rad 2 Benign Appearance or Behavior: Continue annual sc reening with LDCT in 12 months. S Modifier (other clinically significant findings): None
== END | disposition home or self-care (01) ==
LOC: RADCTMAIN 08:11
PROVIDERS: ATTEND Family Medicine
DX: I25.810 Atherosclerosis of coronary artery bypass graft(s) without angina pectoris (principal); R91.1 Solitary pulmonary nodule; Z87.891 Personal history of nicotine dependence
CPT/HCPCS: 71271

== ENCOUNTER → 2022-11-26 | Outpatient (CLI) | payer OTHER ==
--- NOTE | 2022-11-26 12:46 | XR ---
EXAMINATION TYPE: XR wrist limited RT DATE OF EXAM: 11/26/2022 12:30 PM INDICATION: Patient age:Female; 61 years old; Reason for study: S62.91XA Rule out fracture right wrist; [facility]. COMPARISON: None TECHNIQUE: Frontal and lateral views of the right wrist. Frontal, navicular, lateral, and oblique. FINDINGS: No acute osseous pathology, joint dislocation, or joint effusion. No evidence of any soft tissue swelling is seen. No periosteal reaction. No radiopaque foreign body. IMPRESSION: No acute osseous pathology.
== END | disposition home or self-care (01) ==
LOC: RADXRMAIN 12:06
PROVIDERS: ATTEND Family Medicine
DX: S62.91XA Unspecified fracture of right hand, initial encounter for closed fracture (principal)

== ENCOUNTER → 2023-12-15 | Outpatient (CLI) | payer MEDICARE ==
--- NOTE | 2023-12-16 18:33 | MM ---
Reason for Exam: Screening (asymptomatic). Last mammogram was performed 1 year(s) and 3 month(s) ago. Patient History: Menarche at age 10. First Full-Term at age 16. Left ovary removed at age 56. Right ovary removed at age 56. Hysterectomy at age 24. Postmenopausal. Patient has history of breast feeding. Mother had breast cancer, age 50. Risk Values: Sharon 5 year model risk: 3.1%. NCI Lifetime model risk: 11.4%. Prior Study Comparison: 06/26/2020 Bilateral Screening Mammogram, [facility]. 08/29/2021 Bilateral Screening Mammogram, [facility]. 09/11/2022 Bilateral MG 3D screening mammo w/cad, [facility]. Tissue Density: There are scattered areas of fibroglandular density. Findings: Analyzed By CAD. Cardiac nodularity left breast. A few scattered round and punctate calcifications are unchanged. There is no suspicious group of microcalcifications or new suspicious mass in either breast. Overall Assessment: Benign, BI-RAD 2 Management: Screening Mammogram of both breasts in 1 year. See note below in regards to patient's increased 5 year Sharon score. Patient should continue monthly self-breast exams. A clinical breast exam by your physician is recommended on an annual basis. This exam should not preclude additional follow-up of suspicious palpable abnormalities. Note on Sharon scores and lifetime risk: 1. A Sharon score greater than 3% is considered moderate risk. If this is the case, consider specialist referral to assess eligibility for a risk reducing agent. 2. If overall lifetime risk for the development of breast cancer is 20% or higher, the patient may qualify for future screening with alternating mammogram and breast MRI. Electronically signed and approved by: Radha Cagle M.D. Radiologist
== END | disposition home or self-care (01) ==
LOC: RADMAMWWP 07:56
PROVIDERS: ATTEND Family Medicine
DX: Z12.31 Encounter for screening mammogram for malignant neoplasm of breast (principal); Z78.0 Asymptomatic menopausal state; Z80.3 Family history of malignant neoplasm of breast
CPT/HCPCS: 77063; 77067

== ENCOUNTER 2024-06-24 10:29 | Day surgery (SDC) | payer MEDICARE, OTHER ==
[2024-06-23 09:09] VITALS: BMI 44.9
--- NOTE | 2024-06-23 19:52 | HP ---
HISTORY AND PHYSICAL CHIEF COMPLAINT: Fluid in both ears. HISTORY OF PRESENT ILLNESS: This patient is a 63-year-old female, who was recently seen in my office complaining of having a plugged sensation in both ears. At the time she was seen in the office, clinical examination of the ears revealed chronic bilateral serous otitis media. The patient was placed on a course of oral steroids, dexamethasone. She was seen on a return visit in the office, at that time, 1 ear had slightly improved, but the other ear was still had fluid present. She was given a 2nd course of dexamethasone and followed up approximately 2 weeks later. At that time, it was noted that both ears showed evidence of fluid in the middle ear spaces. It was therefore recommended the patient to undergo bilateral myringotomy with insertion of ventilation tubes. PAST MEDICAL HISTORY: Reveals that the patient has allergies to opioids. CURRENT MEDICATIONS: 1. Shanice. 2. Singulair for allergies. 3. Jardiance. 4. Mobic. 5. Prilosec. 6. Crestor. 7. Losartan. 8. Janumet. REVIEW OF SYSTEMS: CARDIOVASCULAR SYSTEM: Positive for hypertension. GASTROINTESTINAL SYSTEM: Positive for GERD (gastroesophageal reflux disorder). METABOLIC ENDOCRINE SYSTEM: Positive for type 2 diabetes mellitus and hypercholesterolemia. MUSCULOSKELETAL SYSTEM: Positive osteoarthritis. Remainder of review of systems is unremarkable. PREVIOUS SURGERIES: Tonsillectomy, adenoidectomy, total abdominal hysterectomy, right knee replacement, and colonoscopy. She is para 6, 3, miscarriage 3. Because of a history of knee replacement, we will place her on Rocephin as a prophylactic antibiotic. PHYSICAL EXAMINATION: GENERAL: This patient is a 63-year-old female, who is alert and cooperative. HEENT: Patient is normocephalic. Both tympanic membranes are dull bilaterally with fluid in both middle ear spaces. Pupils are equal, round, and reactive to light and accommodation. Extraocular movements within normal limits. Intranasal examination reveals moderate to severe septal deviation. Examination of oropharynx and remainder of the head and neck exam are within normal limits. CHEST/CARDIOVASCULAR: Both lung sanchez are clear to percussion and auscultation. Patient is in regular sinus rhythm. S1, S2 are present without any murmurs, S3s or S4s. Peripheral pulses are bilaterally symmetrical. ABDOMEN: There is no evidence any masses, megaly, or tenderness. The abdomen is soft. SKIN: Unremarkable. MUSCULOSKELETAL/NEUROLOGICAL: Within normal limits. PELVIC/RECTAL: This should be printed. The pelvic/rectal exam is deferred at this time because the patient has it done on a regular basis at her family physician's office. Remainder of physical exam is unremarkable. IMPRESSION: Chronic bilateral serous otitis media. PLAN: The patient is scheduled to undergo a bilateral myringotomy with insertion of ventilation tubes under IV sedation with MAC in a.m. Attention, RNs in the pre-surgical area: I have ordered for this patient to receive 2 g of Rocephin IV to be given once an intravenous IV line has been established. If the pharmacy department sends a different type of pre-surgical prophylactic antibiotics to the pre-surgical area for this patient, then that order should be cancelled, and the medication should be returned to the pharmacy department. Also make sure that the patient's account is credited appropriately. I have discussed the risks, benefits and alternative therapies for the above-mentioned procedure and for both sedation/analgesia as well as necessary blood product administration, if indicated, as they pertain to this patient. The patient has indicated his or her understanding and acceptance of the risks and procedures discussed. MMODL / IJN: [id number] /
[~2024-06-24 10:29] MED LIST changes: -LACTATED RINGERS 1,000 ML IV SCH; +Pre Op ABX Message 1 EACH MISC MISCELLANE ONE; +droPERidol 5 MG/2 ML VIAL IVP ONE; +fentaNYL (PF) 50 MCG/ML 2 ML AMP IV PRN
[2024-06-24 11:21] VITALS: TEMP 97.6
[2024-06-24 11:34] LABS: Glucose,Whole Blood 168 mg/dL (70-110)
[2024-06-24] MEDS: LACTATED RINGERS 1,000 ML IV SCH (11:35)
[2024-06-24] MEDS: ONDANSETRON 4 MG/2 ML VIAL IVP ONE (11:38)
[2024-06-24] MEDS: DEXAMETHASONE SOD PHOSPHATE 4 MG/ML 1 ML VIAL IV ONE (11:38)
[2024-06-24] MEDS: FAMOTIDINE 20 MG/2 ML VIAL IV STA (11:48)
[2024-06-24] MEDS: OFLOXACIN 0.3% OPHTH DROPS 5 ML BOTTLE BOTH EARS ONE ×3 (12:39→13:08)
[2024-06-24] MEDS ORDERED: LIDOCAINE 1% INJ 10MG/ML (20 ML MDV) ONE (12:40)
[2024-06-24] MEDS ORDERED: PROPOFOL 10 MG/ML 20 ML VIAL IV ONE (12:40)
[2024-06-24] MEDS ORDERED: MIDAZOLAM 2 MG/2 ML VIAL ONE (12:40)
[2024-06-24] MEDS ORDERED: SUCCINYLCHOLINE CHLORIDE 200 MG/10 ML VIAL IV ONE (12:40)
[2024-06-24 14:19] LABS: Glucose,Whole Blood 154 mg/dL (70-110)
[2024-06-24 14:29] VITALS: BP 121/75; PULSE 80; RESP 16
--- NOTE | 2024-06-25 21:38 | OP ---
OPERATIVE REPORT DATE OF SERVICE : 06/24/2024 PREOPERATIVE DIAGNOSIS: Chronic bilateral serous otitis media. POSTOPERATIVE DIAGNOSIS: Chronic bilateral serous otitis media. ANESTHESIA: General. OPERATIVE PROCEDURE: Bilateral myringotomy with insertion of plastic Xiomy-Bobbin ventilation tubes. COMPLICATIONS: None. ESTIMATED BLOOD LOSS: Zero. PROCEDURE: The patient was placed on the Operating table in the supine position after uneventful induction and IV sedation, satisfactory general anesthesia was obtained. Next, the operating microscope was brought into position over the patient's right ear where after insertion of a #3 aural speculum, the external canal was cleansed of all wax and debris. The myringotomy knife was used to make an incision in the anterior inferior quadrant of the right tympanic membrane. The middle ear space was suctioned free of all fluid and a 1.1 mm Xiomy bobbin ventilation tube was inserted without any difficulty. Attention was then directed to the left ear where the same procedure was carried out using the operating microscope, #3 aural speculum, the external auditory canal was cleansed of all wax and debris. The myringotomy knife was used to make an incision in the anterior inferior quadrant of the left tympanic membrane and the middle ear space was suctioned free of all fluid. A 1.1 mm Xiomy bobbin ventilation tube was inserted without any difficulty. At this point, the procedure was terminated. There were no intraoperative complications. The patient tolerated the procedure well and was returned to the Recovery Room in satisfactory condition. MMALEXEIL / IJMichelle: [id number] /
== END 2024-06-24 14:45 | disposition home or self-care (01) ==
LOC: OR 10:29
PROVIDERS: ATTEND Otolaryngology
DX: H65.23 Chronic serous otitis media, bilateral (principal); I10 Essential (primary) hypertension; E78.5 Hyperlipidemia, unspecified; J45.909 Unspecified asthma, uncomplicated; M19.90 Unspecified osteoarthritis, unspecified site; F41.9 Anxiety disorder, unspecified; F32.A Depression, unspecified; K21.9 Gastro-esophageal reflux disease without esophagitis; Z90.710 Acquired absence of both cervix and uterus; Z96.651 Presence of right artificial knee joint; Z88.5 Allergy status to narcotic agent; Z88.6 Allergy status to analgesic agent; Z79.1 Long term (current) use of non-steroidal anti-inflammatories (NSAID); Z79.84 Long term (current) use of oral hypoglycemic drugs; Z79.02 Long term (current) use of antithrombotics/antiplatelets; Z79.899 Other long term (current) drug therapy
CPT/HCPCS: 69436; J2250; J0330; J1100; J2405; J2003; J3490; J2704

== ENCOUNTER → 2024-08-06 | Outpatient (CLI) | payer MEDICARE, OTHER ==
--- NOTE | 2024-08-06 08:42 | CTL ---
EXAMINATION TYPE: CT Low Dose Lung DATE OF EXAM ORDERED: 08/06/2024 COMPARISON: 01/27/2022 CLINICAL INDICATION: Female, 63 years old with history of Z12.2, Z87.891 Screening; [facility], [facility] of [place], Lung cancer screening, History of Smoking/tobacco use. TECHNIQUE: Low dose computed tomography scan was performed through the chest at 1 mm thick sections a nd reconstructed images in multiple planes at 1 mm and [address] DLP: 77.[address] CTDI: 2.4 mGy Automated exposure control for dose reduction was used. CT DIAGNOSTIC QUALITY: Satisfactory FINDINGS: There is a growing subsolid nodule in the right lower lobe.. It has increased in size from 9.1 mm to 18.4 mm and is suspicious for neoplasm. There is no pleural effusion or pneumothorax. There is no mediastinal, hilar or axillary adenopathy. The great vessels of the chest are normal. There is no cardiomegaly. There are no focal osseous lesions. IMPRESSION: 1. Lung rads Category 4X. Highly suspicious for malignancy. PET scan and/or tissue sampling is recomm ended. 2. No acute cardiopulmonary disease. [facility], , 08/06/2024 8:39 AM
== END | disposition home or self-care (01) ==
LOC: RADCTMAIN 07:41
PROVIDERS: ATTEND Family Medicine
DX: Z12.2 Encounter for screening for malignant neoplasm of respiratory organs (principal); Z87.891 Personal history of nicotine dependence
CPT/HCPCS: 71271

== ENCOUNTER → 2024-09-16 | Outpatient (CLI) | payer MEDICARE, OTHER ==
--- NOTE | 2024-09-16 13:44 | US ---
EXAMINATION TYPE: US thyroid st tissue head/neck DATE OF EXAM: 09/16/2024 COMPARISON: PET/CT 09/01/2024 CLINICAL INDICATION: Female, 63 years old with history of E04.1 NONTOXIC SINGLE THYROID NODULE; Not o n thyroid meds. Nodule seen on PET scan. TECHNIQUE: Grayscale and color Doppler imaging of the thyroid gland. FINDINGS: GLAND SIZE: Right Lobe: 4.1 x 2.0 x 2.3 cm Overall Parenchyma: heterogeneous Left Lobe: 4.8 x 2.2 x 2.8 cm Overall Parenchyma: heterogeneous Isthmus Thickness: 0.7 cm NODULES RIGHT: # of nodules measured on right: 1 1. 0.7 X 0.6 x 0.4 cm, upper mid, solid or almost completely solid, hypoechoic nodule, which is wid er than tall, with smooth margins, without echogenic foci. TR 4. Prior size: None LEFT: # of nodules measured on left: 2 1. 2.3 X 2.2 x 1.7 cm, lower mid, mixed cystic and solid, hypoechoic nodule, which is wider than ta ll, with lobulated or irregular margins, without echogenic foci. TR 4. Prior size: None 2. 0.7 X 0.8 x 0.7 cm, upper mid, solid or almost completely solid, hypoechoic nodule, which is wi sebas than tall, with smooth margins, without echogenic foci. TR 4. Prior size: None ISTHMUS: # of nodules measured in the isthmus: 0 Bilateral neck scanned, no evidence of lymphadenopathy. IMPRESSION: Bilateral TR 4 thyroid nodules as described above. ACR TI-RADS LEVEL: TI-RADS 4 - Moderately Suspicious: Follow if > 1 cm, FNA if > 1.5 cm *Highest TI-RADS level nodule reported [email or web address] [facility], , 09/16/2024 1:42 PM
== END | disposition home or self-care (01) ==
LOC: RADUSWWP 13:05
PROVIDERS: ATTEND Family Medicine
DX: E04.2 Nontoxic multinodular goiter (principal)
CPT/HCPCS: 76536

== ENCOUNTER 2024-10-03 12:53 | Day surgery (SDC) | payer MEDICARE, OTHER ==
[2024-10-03 13:09] VITALS: BP 115/68; PULSE 84; RESP 12; TEMP 97.7
--- NOTE | 2024-10-03 14:28 | US ---
EXAMINATION TYPE: US FNA thyroid first lesion DATE OF EXAM: 10/03/2024 2:09 PM COMPARISON: None. CLINICAL INDICATION: Female, 63 years old with history of E04.1 NONTOXIC SINGLE THYROID NODULE; , thy roid nodule TECHNIQUE/FINDINGS: The procedure was explained to the patient. The risks, complications, benefits and alternatives were discussed and any questions were answered. Informed consent was obtained. Patient was placed supin e on the ultrasound table and prepped and draped in the usual sterile fashion. Utilizing a 25 gauge needle, five passes were made into the requested left thyroid nodule. Patient was stable throughout the procedure. Pathology is pending. All elements of maximal barrier technique were utilized. IMPRESSION: 1. Successful ultrasound guided FNA thyroid biopsy. [facility], , 10/03/2024 2:25 PM
== END 2024-10-03 14:15 | disposition home or self-care (01) ==
LOC: RADPROMAIN 12:53
PROVIDERS: ATTEND Family Medicine
DX: E04.1 Nontoxic single thyroid nodule (principal)
CPT/HCPCS: 10005; 88173; 88305

== ENCOUNTER → 2025-01-12 | Outpatient (CLI) | payer MEDICARE, OTHER ==
--- NOTE | 2025-01-12 16:31 | MM ---
Reason for Exam: Screening (asymptomatic). Last mammogram was performed 1 year(s) and 1 month(s) ago. Patient History: Menarche at age 10. First Full-Term at age 16. Left ovary removed at age 56. Right ovary removed at age 56. Hysterectomy at age 24. Postmenopausal. Patient has history of breast feeding. Mother had breast cancer, age 50. Risk Values: Sharon 5 year model risk: 3.1%. NCI Lifetime model risk: 11.0%. Prior Study Comparison: 08/29/2021 Bilateral Screening Mammogram, [facility]. 09/11/2022 Bilateral MG 3D screening mammo w/cad, [facility]. 12/15/2023 Bilateral MG 3D screening mammo w/cad, [facility]. Tissue Density: There are scattered areas of fibroglandular density. Findings: Analyzed By CAD. Chronic low density nodularity on both sides. A few benign punctate dermal calcifications are noted. Asymmetric densities on the right are unchanged. There is no suspicious group of microcalcifications or new suspicious mass in either breast. Overall Assessment: Benign, BI-RAD 2 Management: Screening Mammogram of both breasts in 1 year. See note below in regards to the patient's increased 5 year Sharon score. Patient should continue monthly self-breast exams. A clinical breast exam by your physician is recommended on an annual basis. This exam should not preclude additional follow-up of suspicious palpable abnormalities. Note on Sharon scores and lifetime risk: 1. A Sharon score greater than 3% is considered moderate risk. If this is the case, consider specialist referral to assess eligibility for a risk reducing agent. 2. If overall lifetime risk for the development of breast cancer is 20% or higher, the patient may qualify for future screening with alternating mammogram and breast MRI. [facility], , 01/12/2025 4:28 PM. Electronically signed and approved by: Radha Cagle M.D. Radiologist
--- NOTE | 2025-01-12 16:46 | BD ---
EXAMINATION TYPE: Axial Bone Density DATE OF EXAM: 01/12/2025 CLINICAL HISTORY: 64 years old Female. ICD-10 CODE: Z78.0 POST MENOAUSAL , Additional History: Height: 60 Weight: 227.4 FRAX RISK QUESTIONS: Alcohol (3 or more units per day): no Family History (Parent hip fracture): no Glucocorticoids (More than 3mos): no (Ex: prednisone, prednisolone, methylprednisolone, dexamethasone, and hydrocortisone). History of Fracture in Adulthood: no Secondary Osteoporosis: 1. Type 1 Diabetes: no 2. Hyperthyroidism: no 3. Menopause before 45: yes 4. Malnutrition: no 5. Chronic liver disease: no Rheumatoid Arthritis: no Current Tobacco Use: no RISK FACTORS HISTORY OF: Surgery to Spine/Hip(right/left)/Wrist (right/left): no EXAM MEASUREMENTS: Bone mineral densitometry was performed using the [employer]. Bone mineral density as measured about the Lumbar spine is: ----- L1-L4(G/cm2): 1.192 T Score Values are as follows: ----- L1: 0.9 ----- L2: -0.1 ----- L3: 0.7 ----- L4: -0.9 ----- L1-L4: 0.1 Z Score Values are as follows: ----- L1: 1.4 ----- L2: 0.4 ----- L3: 1.1 ----- L4: -0.5 ----- L1-L4: 0.5 Bone mineral density has: increased 3.9 % since study of: 09.11.2022 Bone mineral density about the R hip (g/cm2): 0.874 Bone mineral density about the L hip (g/cm2): 0.807 T Score values are as follows: -----R Neck: -1.8 -----L Neck: -1.9 -----R Total: -1.1 -----L Total: -1.6 Z Score values are as follows: -----R Neck: -1.0 -----L Neck: -1.2 -----R Total: -0.7 -----L Total: -1.2 Bone mineral density has: decreased -10.5 % since study of: 3.2.2022 FRAX%s: The graph provided illustrates a 9.1% chance for a major osteoporotic fx and a 1.2% chance fo r the hips probability for fx in 10 years time. IMPRESSION: Osteopenia (T Score between -2.5 and -1). There is slightly increased risk of fracture and the patient may be considered for treatment. Re-Screen 2-5 years. NOTE: T-SCORE=SD OF THE YOUNG ADULT MEAN. [facility], , 01/12/2025 4:44 PM
== END | disposition home or self-care (01) ==
LOC: RADMAMWWP 15:34
PROVIDERS: ATTEND Family Medicine
DX: Z12.31 Encounter for screening mammogram for malignant neoplasm of breast (principal); R92.323 Mammographic fibroglandular density, bilateral breasts; M85.89 Other specified disorders of bone density and structure, multiple sites; Z80.3 Family history of malignant neoplasm of breast; Z78.0 Asymptomatic menopausal state
CPT/HCPCS: 77063; 77067; 77080